=== PATIENT | female | born 1985 | race Caucasian/White ===

== ENCOUNTER 2019-12-13 11:13 | Outpatient (CLI) | payer OTHER, SELFPAY ==
--- NOTE | ~2019-12-13 | US_ITS ---
EXAMINATION: US OB <=14 wk fetus w TV EXAM DATE: 12/13/2019 12:09 INDICATION: Suppression of menstruation. 1st trimester. TECHNIQUE: Pelvic obstetrical transabdominal and transvaginal sonogram was performed by a technologkenyatta queen. There are multiple grayscale and Doppler images available for interpretation. FINDINGS: Uterus measures 10.4 x 4.8 x 5.8 cm. There is intrauterine gestation sac. The 1.[address] mean sac diameter corresponds to estimated gestational age by ultrasound of 5 weeks 5 days. There is no pole identified at this time. Identification of a yolk sac. Small subchorionic hematoma. The ovaries are morphologically normal. IMPRESSION: Intrauterine gestation sac with small subchorionic hemorrhage. No pole identified a t this time, cannot confirm or exclude viability. Consider 2 week follow-up pelvic sonogram. Reviewed, dictated and finalized at location A. IMPRESSION: Intrauterine gestation sac with small subchorionic hemorrhage. No f etal pole identified at this time, cannot confirm or exclude viability. Conside r 2 week follow-up pelvic sonogram.
== END 2019-12-13 11:14 | disposition home or self-care (01) ==
PROVIDERS: PCP Family Medicine; Visit Provider Obstetrics & Gynecology
DX: N92.5 Other specified irregular menstruation (principal); O36.8911 Maternal care for other specified fetal problems, first trimester, fetus 1
CPT/HCPCS: 76801; 76817

== ENCOUNTER → 2019-12-25 15:18 | Outpatient (CLI) | payer OTHER, SELFPAY ==
--- NOTE | ~2019-12-25 | US_ITS ---
EXAMINATION: US OB transvaginal EXAM DATE: 12/25/2019 16:10 INDICATION: Follow-up pole. Viability. 1st trimester. TECHNIQUE: Pelvic obstetrical transvaginal sonogram was performed by a technologist. There are mult iple grayscale and Doppler images available for interpretation. Comparison is made to prior examinati on from 12/13/2019. FINDINGS: Uterus measures 8.7 x 6.0 x 6.7 cm. There is intrauterine gestation sac. pole with heart rate confirmed at 92 beats per minute. The 3 mm crown-rump length corresponds to estimated ges tational age by ultrasound of 6 weeks 0 days. Yolk sac is identified. There is tiny subchorionic h emorrhage measuring 7 x 6 x 9 mm. Right ovary measures 2.9 x 1.4 x 2.0 cm. The left ovary measures 5. 3 x 3.9 x 4.2 cm and likely has the corpus luteal cyst. IMPRESSION: Early live intrauterine gestation with small subchorionic hemorrhage. Reviewed, dictated and finalized at location A. IMPRESSION: Early live intrauterine gestation with small subchorionic hemorrha ge.
== END ==
PROVIDERS: Visit Provider Obstetrics & Gynecology
DX: Z32.01 Encounter for pregnancy test, result positive (principal)
CPT/HCPCS: 76817

== ENCOUNTER → 2020-01-24 13:42 | Outpatient (CLI) | payer OTHER, SELFPAY ==
--- NOTE | ~2020-01-24 | US_ITS ---
EXAMINATION: US OB <=14 wk fetus w TV DATE: 01/24/2020 14:05 INDICATION: Vaginal bleeding and cramping during first trimester of TECHNIQUE: Real-time pelvic ultrasound utilizing both a transvaginal and transabdominal probe was pe rformed. The interpreting radiologist was not present for the study. COMPARISON: 12/25/2019 FINDINGS: The uterus measures 10.8 x 6.9 x 7.1 cm. There is an intrauterine gestational sac measuring 2.2 cm i n diameter which now appears empty with no discernible yolk sac or pole, both of which were nina dent on the prior study consistent with demise. The right ovary measures 2.5 x 1.3 x 1.9 cm. The left ovary is not visualized. There is small amount of free fluid in the pelvis. IMPRESSION: 1. Intrauterine gestational sac now with no discernible yolk sac or pole consistent with demise. Reviewed, dictated and finalized at location B.
== END ==
PROVIDERS: PCP Family Medicine; Visit Provider Obstetrics & Gynecology
DX: Z34.81 Encounter for supervision of other normal pregnancy, first trimester (principal)
CPT/HCPCS: 76801; 76817

== ENCOUNTER 2020-02-02 16:29 | Emergency (ER) | payer OTHER, SELFPAY ==
--- NOTE | ~2020-02-02 | US_ITS ---
EXAMINATION: US OB <= 14 weeks fetus DATE: 02/02/2020 19:36 INDICATION: Vaginal bleeding. Recent dilatation and curettage. TECHNIQUE: Real-time transabdominal pelvic ultrasound was performed. COMPARISON: Ultrasound 01/24/2020 FINDINGS: The uterus measures 10.1 x 4.1 x 5.5 cm. The endometrial complex measures 6 mm in thickness. The rig ht ovary measures 2.4 x 1.6 x 1.7 cm. The left ovary measures 3.1 x 1.4 x 2.1 cm. There is normal vas cular flow in the ovaries. There is no free fluid in the pelvis. IMPRESSION: 1. No retained products of conception. Reviewed, dictated and finalized at location A. 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
[2020-02-02 17:08] VITALS: BP 117/47; PULSE 81; RESP 18; TEMP 36.9; O2SAT 100
[2020-02-02 17:35] LABS: Basophils Percent Auto 0.4 % (0.2-1.2); Eosinophils Absolute Auto 0.2 K/mm3 (0-0.3); Hematocrit 39.9 % (37.0-47.0); Hemoglobin 13.2 g/dL (12.0-15.0); Immature Granulocyte Absolute 0.02 K/mm3 (0.00-0.031); Immature Granulocyte Percent A 0.3 % (0-0.5); Lymphocytes Absolute Auto 2.82 K/mm3 (0.9-3.2); Lymphocytes Percent Auto 40.6 % (18.3-44.2); Mean Corpuscular HGB Conc 33.1 g/dl (32-36); Mean Corpuscular Hemoglobin 30.7 pg (26-34); Mean Corpuscular Volume 92.8 fl (80-100); Mean Platelet Volume 10.2 fl (7.4-10.4); Monocytes Absolute Auto 0.6 K/mm3 (0.1-0.6); Monocytes Percent Auto 8.1 % (2.6-8.5); Neutrophils Absolute Auto 3.3 K/mm3 (1.3-6.7); Neutrophils Percent Auto 47.6 % (45.5-73.1); Platelet Count Result 284 k/mm3 (150-375); Red Cell Distribution Width 12.1 % (11.5-14.5)
[2020-02-02 18:06] LABS: Beta HCG Quantitative 233.64 mIU/ML
[2020-02-02 18:11] VITALS: BP 138/84; BP 144/82; PULSE 108
[2020-02-02 18:12] VITALS: BP 140/80; PULSE 105
[2020-02-02] MEDS: SODIUM CHLORIDE 0.9% IV 1,000 ML 999 ML IV CONT ×2 (18:44→19:42)
--- NOTE | 2020-02-02 18:50 | PC.NURSE ---
Per Cheryl in lab, a type and screen is not needed as the pt has had a rhogam screen done.
[2020-02-02 19:01] LABS: Anion Gap 8 mmol/L (8-16); Blood Urea Nitrogen 12 mg/dL (7-17); Calcium 9.5 mg/dL (8.4-10.2); Carbon Dioxide 26 mmol/L (22-30); Chloride 105 mmol/L (98-107); Estimated CRCL calculation 96 ml/min; Estimated Glomerular Filt Rate > 60; Glucose 96 mg/dL (65-105); Potassium 4.6 mmol/L (3.4-5.0); Sodium 139 mmol/L (137-145)
--- NOTE | 2020-02-02 19:05 | PC.NURSE ---
Report to Hyacinth Bowman RN, to continue care.
[2020-02-02] MEDS: ONDANSETRON INJ 4 MG/2 ML VIAL IV PUSH (19:09)
--- NOTE | 2020-02-02 19:28 | ED.GENADULT ---
HPI - General Adult General Chief complaint: Vaginal Bleeding Stated complaint: heavy vag bleeding, pain after d & c Time Seen by Provider: 02/02/20 18:37 Source: patient Mode of arrival: ambulatory Limitations: no limitations History of Present Illness HPI narrative: Patient is a 34-year-old female who presents after having had D&C [address] Harper patient notes over the last several days she has started having increasing bleeding and cramping. Patient presents with chills increasing bleeding nausea and cramping. Patient is G5, P2 and was at 14 weeks when she miscarried and had the D&C at an outside hospital Related Data Home Medications Medication Instructions Recorded Confirmed No Home Medications 02/02/20 02/02/20 Allergies Allergy/AdvReac Type Severity Reaction Status Date / Time No Known Allergies Allergy Verified 02/02/20 18:17 Review of Systems Review of Systems: All systems reviewed & are unremarkable except as noted in HPI and below PMFSH Past Medical History Medical History Generalized anxiety disorder Family History Family History (Updated 10/13/18 @ 14:33 by DOCTOR UNKNOWN) Mother Hypertension Family history of elevated blood lipids Grandparent Acute myocardial infarction Cerebrovascular accident Family history of malignant neoplasm Social History Social History Smoking status: Former smoker Smoking end date: 03/29/10 Alcohol intake: current Exam Narrative: Exam Narrative: GENERAL: Well-appearing, well-nourished, and in no acute distress. HEAD: Normocephalic, atraumatic. EYES: PERRLA and EOMI. ENT: Nares clear, no rhinorrhea or epistaxis. Mucous membranes moist. CHEST: Clear to auscultation. No respiratory distress. No wheezes rales or rhonchi HEART: Regular rate and rhythm. No murmur heard. Normal peripheral pulses. ABDOMEN: Soft, tenderness in the lower quadrants, nondistended EXTREMITIES: Normal range of motion. No edema. SKIN: Warm, dry, no rash. NEURO: No focal deficits. Alert and oriented x3. PSYCH: Normal mood and affect. Course Course Emergency Course: Patient was hydrated and given medication as well as antibiotic in the emergency department is aware of recommendations and discussion with her life claims examiner will follow with them on an outpatient basis has appointment on Wednesday has been given reasons to return Consultations Consultation #1: Discussed case with Dr. Gregorio who recommends the patient can be discharged home for further evaluation on an outpatient basis patient given reasons to return will be placed on antibiotics as recommended by gynecology recommends doxycycline Date: 02/02/20 Time: 21:04 Vital Signs Vital signs: Vital Signs Temperature 98.5 F 02/02/20 17:08 Pulse Rate 81 02/02/20 17:08 Respiratory Rate 18 02/02/20 17:08 Blood Pressure 117/47 L 02/02/20 17:08 Pulse Oximetry 100 02/02/20 17:08 Temperature 98.5 F 02/02/20 17:08 Pulse Rate 105 H 02/02/20 18:12 Respiratory Rate 18 02/02/20 17:08 Blood Pressure 140/80 02/02/20 18:12 Pulse Oximetry 100 02/02/20 17:08 Medical Decision Making MDM Narrative Medical decision making narrative: Patient with likely miscarriage no retained products seen on her ultrasound no high risk changes in the imaging blood work or vital signs stable ABCs felt appropriate for outpatient reevaluation medicated and evaluated the emergency department provided with reasons to return Vital Signs Vital Signs: Vital Signs Temperature 98.5 F 02/02/20 17:08 Pulse Rate 81 02/02/20 17:08 Respiratory Rate 18 02/02/20 17:08 Blood Pressure 117/47 L 02/02/20 17:08 Pulse Oximetry 100 02/02/20 17:08 Temperature 98.5 F 02/02/20 17:08 Pulse Rate 105 H 02/02/20 18:12 Respiratory Rate 18 02/02/20 17:08 Blood Pressure 140/80 02/02/20 18:12 Pu
[2020-02-02] MEDS: oxyCODONE/ACETAMINOPHEN (*CRX) 5-325 MG TABLET 1 TABLET PO (21:04)
[2020-02-02] MEDS: IBUPROFEN IV 800 MG/200 ML 800 MG/200 ML BAG 400 MG IVPB (21:05)
[2020-02-02] MEDS: DOXYCYCLINE HYCLATE 100 MG TABLET PO (21:06)
[2020-02-02 22:04] VITALS: BP 115/68; PULSE 72; RESP 17; O2SAT 99
== END 2020-02-02 22:00 | disposition home or self-care (01) ==
PROVIDERS: Emergency Provider Emergency Medicine; PCP Family Medicine
DX: R10.9 Unspecified abdominal pain (principal); Z98.890 Other specified postprocedural states
CPT/HCPCS: 36415; 76801; 80048; 84702; 85025; 85461; 96361; 96365; 96375; 99284; A9270; J0131; J1741; J2405; J7030

== ENCOUNTER 2020-06-02 18:18 | Emergency (ER) | payer OTHER, SELFPAY ==
[2020-06-02 18:23] VITALS: BP 156/85; PULSE 104; RESP 24; TEMP 36.7; O2SAT 100
[2020-06-02 19:14] LABS: Lactic Acid Reflex 1.4 mmol/L (0.7-2.1)
[2020-06-02 19:18] LABS: Alanine Aminotransferase 16 U/L (4-35); Albumin Level 4.4 g/dL (3.5-5.1); Alkaline Phosphatase 64 U/L (38-126); Anion Gap 7 mmol/L (8-16); Aspartate Amino Transferase 23 U/L (14-36); Bilirubin,Total 0.3 mg/dL (0.2-1.3); Blood Urea Nitrogen 15 mg/dL (7-17); CRP < 0.5 mg/dL (<1.0); Calcium 9.3 mg/dL (8.4-10.2); Carbon Dioxide 26 mmol/L (22-30); Chloride 107 mmol/L (98-107); Estimated CRCL calculation 92 ml/min; Estimated Glomerular Filt Rate > 60; Glucose 117 mg/dL (65-105); Potassium 4.1 mmol/L (3.4-5.0); Sodium 140 mmol/L (137-145)
[2020-06-02 19:19] LABS: Add Urine Microscopic? YES; Amorphous Sediment Urine Moderate; Appearance Urine Cloudy (Clear); Bilirubin Urine Negative (Negative); Blood Urine Negative (Negative); Color Urine Yellow (Yellow); Glucose Urine UA Negative (Negative); Ketones Urine Negative (Negative); Leukocyte Esterase Ur Trace LEU/UL (Negative); Nitrate Urine Negative (Negative); Protein Urine 1+ mg/dL (Negative); RBC Urine 0-2 /hpf (0-2); Specific Grav Ur 1.016 (1.001-1.035); Squamous Epithelial Cell Urine Moderate /hpf (Few); Urobilinogen Urine Negative mg/dL (<2.0); WBC Urine 0-3 /hpf
[2020-06-02] MEDS: SODIUM CHLORIDE 0.9% IV 1,000 ML 999 ML IV CONT (19:25)
[2020-06-02] MEDS: IBUPROFEN IV 800 MG/200 ML 800 MG/200 ML BAG 400 MG IVPB (19:26)
[2020-06-02] MEDS: LORazepam INJ (*CRX) 2 MG/ML VIAL 1 MG IV PUSH (19:27)
--- NOTE | 2020-06-02 19:27 | ED.GENADULT ---
HPI - General Adult General Chief complaint: Unspecified <Ridge Avalos PA-C - Last Filed: 06/02/20 21:04> Stated complaint: body aches, night sweats <Ridge Avalos PA-C - Last Filed: 06/02/20 21:04> Time Seen by Provider: 06/02/20 18:31 <VASILIY Kim Last Filed: 06/02/20 21:04> Source: patient and old records reviewed <VASILIY Kim Last Filed: 06/02/20 21:04> Mode of arrival: ambulatory <VASILIY Kim Last Filed: 06/02/20 21:04> Limitations: no limitations <VASILIY Kim Last Filed: 06/02/20 21:04> History of Present Illness HPI narrative: Patient is a 34-year-old female who presents to emergency department for evaluation of chills and body aches patient notes for the last 3 weeks since she had a tubal ligation she has been having mild discomfort in the lower pelvic region with various parts of her body having aching today she contacted primary care was instructed to come to the ER with aching to the upper shoulders and elbows patient denies any vaginal bleeding discharge urinary symptoms or URI symptoms or similar occurrence in the past <Ridge Avalos PA-C - Last Filed: 06/02/20 21:04> Related Data Allergies/adverse reactions: Allergies Allergy/AdvReac Type Severity Reaction Status Date / Time No Known Allergies Allergy Verified 06/04/20 11:29 <Ridge Avalos PA-C - Last Filed: 06/02/20 21:04> Review of Systems Review of Systems: All systems reviewed & are unremarkable except as noted in HPI and below <VASILIY Kim Last Filed: 06/02/20 21:04> [facility] Past Medical History Medical History: Medical History Androgenic alopecia Generalized anxiety disorder Miscarriage within last 12 months SAB3 Psoriasis Telogen effluvium <VASILIY Kim Last Filed: 06/02/20 21:04> Family History Family History: Family History Mother Hypertension Family history of elevated blood lipids Grandparent Acute myocardial infarction Cerebrovascular accident Family history of malignant neoplasm <Ridge Avalos PA-C - Last Filed: 06/02/20 21:04> Social History Social History: Social History Smoking status: Never smoker Smoking end date: 03/29/10 Alcohol intake: current Gender identity (if verbalized by the patient): Female <Ridge Avalos PA-C - Last Filed: 06/02/20 21:04> Exam Narrative: Exam Narrative: GENERAL: Well-appearing, obese, and in no acute distress. HEAD: Normocephalic, atraumatic. EYES: PERRLA and EOMI. ENT: Nares clear, no rhinorrhea or epistaxis. Mucous membranes moist. NECK: Supple. No adenopathy or masses. CHEST: Clear to auscultation. No respiratory distress. No wheezes rales or rhonchi HEART: Regular rate and rhythm. No murmur heard. Normal peripheral pulses. ABDOMEN: Soft, nontender, nondistended EXTREMITIES: Normal range of motion. No edema. SKIN: Warm, dry, no rash. NEURO: No focal deficits. Alert and oriented x3. Cranial nerves II through XII grossly intact PSYCH: Normal mood and affect. <VASILIY Kim Last Filed: 06/02/20 21:04> Course Course Emergency Course: Patient in the room no distress no high risk changes in the evaluation has close follow-up with primary care and healthcare social worker which is felt appropriate for further evaluation and to her symptomology which is been present for 3 weeks following her tubal ligation miscarriage it is unclear is whether or not her symptomology is related to this patient feels comfortable with the further evaluation on outpatient basis and will return if symptoms worsen ABCs and vital signs intact and stable <VASILIY Kim Last Filed: 06/02/20 21:04> Vital Signs Vital signs: Vital Signs [place]
[2020-06-02 19:33] LABS: Erythrocyte Sedimentation Rate 15 mm/hr (0-20)
[2020-06-02] MEDS: HYDROcodone/acetaminophen (*CRX) 5-325 MG TABLET 1 TAB PO (20:03)
--- NOTE | 2020-06-02 20:05 | PC.NURSE ---
pt c/o burning from caldelor iv, stopped infusion. provider aware
[2020-06-02 20:21] LABS: Basophils Percent Auto 0.3 % (0.2-1.2); Eosinophils Absolute Auto 0.2 K/mm3 (0-0.3); Eosinophils Percent Auto 2.4 % (0-4.4); Hematocrit 42.2 % (37.0-47.0); Hemoglobin 14.2 g/dL (12.0-15.0); Immature Granulocyte Absolute 0.01 K/mm3 (0.00-0.031); Immature Granulocyte Percent A 0.1 % (0-0.5); Lymphocytes Percent Auto 39.3 % (18.3-44.2); Mean Corpuscular HGB Conc 33.6 g/dl (32-36); Mean Corpuscular Hemoglobin 30.3 pg (26-34); Mean Platelet Volume 11.1 fl (7.4-10.4); Monocytes Absolute Auto 0.6 K/mm3 (0.1-0.6); Monocytes Percent Auto 7.7 % (2.6-8.5); Neutrophils Percent Auto 50.2 % (45.5-73.1); Platelet Count Result 225 k/mm3 (150-375); Red Blood Count 4.69 M/mm3 (4.2-5.4); Red Cell Distribution Width 11.7 % (11.5-14.5); White Blood Count 7.9 K/mm3 (4.5-10.0)
[2020-06-02 20:33] LABS: Lipase 124 U/L (23-300)
[2020-06-02 21:22] VITALS: BP 126/78; PULSE 79; RESP 17; O2SAT 98
== END 2020-06-02 21:23 | disposition home or self-care (01) ==
PROVIDERS: Emergency Medicine Emergency Medical Services; Emergency Provider Emergency Medicine; PCP Family Medicine
DX: M25.512 Pain in left shoulder (principal); M25.511 Pain in right shoulder; M25.522 Pain in left elbow; M25.521 Pain in right elbow; Z87.891 Personal history of nicotine dependence
CPT/HCPCS: 36415; 80053; 81001; 81025; 83605; 83690; 84443; 85025; 85652; 86140; 96374; 96375; 99284; A9270; J1741; J2060; J7030

== ENCOUNTER 2021-05-19 14:24 | Outpatient (CLI) | payer OTHER, SELFPAY | END 2021-05-19 14:25 | disposition home or self-care (01) | LOC: ANHSURGERY 14:26 | PROVIDERS: PCP Family Medicine; Visit Provider Urology | DX: Z01.818 Encounter for other preprocedural examination (principal); R32 Unspecified urinary incontinence; N81.9 Female genital prolapse, unspecified | CPT/HCPCS: 36415; 86850; 86900; 86901; 87086 ==

== ENCOUNTER 2021-05-26 00:41 | Day surgery (SDC) | payer OTHER, SELFPAY ==
[2021-05-16 14:34] VITALS: BMI 33.9
--- NOTE | 2021-05-16 14:50 | PC.NURSE ---
Report to the Outpatient Waiting Room, entrance under the green pavilion located off [facility], at time 10:00 on date 05/26/21. OR Time: 12:00. - You and your visitor will be asked a series of questions to screen for COVID 19 for your protection. - A mask is required within the hospital. One visitor will be allowed to accompany the patient into the hospital. Patients visitor will be instructed to remain with patient at all times or leave the building. We will allow the visitor to come back to the postoperative area when patient is ready. Preoperative COVID Testing Requirements: No COVID Test needed if: (proof is required; if not received patient will have Rapid Test prior to entry) - Patient has received COVID Vaccine at least 14 days prior to procedure date or - Patient has positive COVID test result within last 90 days of surgery date. COVID Test needed if above criteria is not met Patients may have clear liquids (water, carbonated beverages, clear teas, apple juice) until 3 hours prior to surgery (9:00) with a maximum of 20 ounces. - No food from midnight until time of surgery Take the following medications with a SIP of water the morning of surgery: NONE Medications to discontinue per physician: N/A Date to take last dose: N/A Please no make-up, nail ku[place]i, hairspray, perfume, deodorant, or body powder the day of surgery. No jewelry (including any body piercings) or valuables the day of surgery, leave them at home. Please take a shower or bath the night before, or the morning of, surgery with an antibacterial soap. Wear comfortable, loose fitting clothing. - Jewelry must be removed prior to entering the operating room. Rings and piercings that are not removed may be cut off. - The hospital will not accept responsibility for valuables. - Please leave all valuables, including medications, at home the day of surgery. If you are going home after surgery, a licensed waste collection driver must drive you home. - NO public transportation without another adult. - We recommend that an adult stay with you for 24 hours following discharge. - We also recommend that you do not drive, make important decision, drink alcoholic beverages, or take any drugs that were not prescribed by your health care provider for at least 24 hours after your discharge time. Follow any additional instructions given to you from your surgeon. Telephone instructions given to SABRINA BERNAL and asked if any additional questions and then verbalized understanding. Patient advised to call surgeon office or pre surgery nurse liaison [phone] if any additional questions.
--- NOTE | 2021-05-18 19:39 | PM.IMHP ---
H&P: HPI History of Present Illness Date/Time: 05/18/21 19:39 35 yo with DESTINEE Chief Complaint: DESTINEE Review of Systems Review of Systems: All systems reviewed & are unremarkable except as noted in HPI and below PMFSH Past Medical History Medical History Androgenic alopecia Generalized anxiety disorder Miscarriage within last 12 months SAB3 Psoriasis Telogen effluvium Family History Family History Mother Hypertension Family history of elevated blood lipids Grandparent Acute myocardial infarction Cerebrovascular accident Family history of malignant neoplasm Social History Social History Smoking packs per day: 0.5 Smoking cigarettes per day: 10.0 Years smoked: 7 Smoking pack-years: 3.50 Smoking status: Former smoker Tobacco type: cigarettes Smoking end date: 04/29/13 Alcohol intake: current Drinks per week: 2 Substance use: never Substance use type: does not use Gender identity (if verbalized by the patient): Female Spiritual care concerns: No Meds Home Medications and Allergies Home Medications Medication Instructions Recorded Confirmed Type No Home Medications 05/16/21 05/16/21 History Allergies Allergy/AdvReac Type Severity Reaction Status Date / Time No Known Allergies Allergy Verified 05/16/21 14:34 Exam Narrative: NAD A+Ox3 + urethral mobility Assessment and Plan Assessment and plan (1) DESTINEE (stress urinary incontinence, female): Code(s): N39.3 - Stress incontinence (female) (male) Status: Acute Assessment and Plan: urethral sling
[2021-05-26] VITALS (10 sets, daily range): BP systolic 105–130; BP diastolic 53–67; PULSE 73–110; RESP 12–18; TEMP 36.1–37.2; O2SAT 97–100
--- NOTE | 2021-05-26 07:09 | WPDHPUPDATE1 ---
History and Physical Update Update Date/Time: 05/26/21 07:09 History and Physical has been reviewed, including an updated exam of the patient. There are NO changes in the patient's condition. Risks, benefits, and alternatives have been discussed and questions answered. Patient agrees to proceed with procedure.
--- NOTE | 2021-05-26 08:08 | WPDANESEPPF ---
Anes - Initial Pre Proc Eval Procedure: Operation Date: 05/26/21 12:00 Proposed Procedures p Urethral Sling - Braxton Stevens MD s Robotic Assisted Total Laparoscopic Hysterectomy - Rafael Harper MD Date/Time: 05/26/21 08:08 Surgeon: Braxton Stevens MD Pre Op Diagnosis: stress incontinence Patient Data Age: 35 Gender: F Height: 1.65 m Weight: 92.53 kg Allergies Allergy/AdvReac Type Severity Reaction Status Date / Time No Known Allergies Allergy Verified 05/16/21 14:34 Home Medications Medication Instructions Recorded Confirmed Type No Home Medications 05/16/21 05/16/21 History Patient hx anesthesia problems: none Family hx anesthesia problems: none Results Review: All pre-operative results and documents have been reviewed as part of the pre-operative evaluation. [facility] Past Medical History Medical History (Updated 05/26/21 @ 08:09 by Tima Dove DO) Androgenic alopecia Anxiety Depression Generalized anxiety disorder Miscarriage within last 12 months SAB3 Psoriasis Telogen effluvium Surgical History Surgical History (Updated 05/26/21 @ 08:09 by Tima Dove DO) History of tubal ligation Family History Family History Mother Hypertension Family history of elevated blood lipids Grandparent Acute myocardial infarction Cerebrovascular accident Family history of malignant neoplasm Social History Social History Smoking packs per day: 0.5 Smoking cigarettes per day: 10.0 Years smoked: 7 Smoking pack-years: 3.50 Smoking status: Former smoker Tobacco type: cigarettes Smoking end date: 04/29/13 Alcohol intake: current Drinks per week: 2 Substance use: never Substance use type: does not use Living arrangements: with family Gender identity (if verbalized by the patient): Female Spiritual care concerns: No Anes - Eval Final PreProcedure Day of Procedure 05/26/21 08:08 Patient weight: obese Heart: regular rate and rhythm Lungs: clear to auscultation and normal air movement Airway: Mallampati scale class II Neurological: alert and oriented Last oral intake: >/= 8 hours ASA classification: II Emergent: no Anesthetic plan: proceed Anesthesia type and monitoring: general ETT and standard monitoring Results Review: All pre-operative results and documents have been reviewed as part of the pre-operative evaluation. Informed Consent: The patient's anesthetic plan and its attendant risks and benefits were discussed with the patient/family/POA. Questions were solicited and answers provided to the satisfaction of the patient/family/POA.
[2021-05-26] MEDS: LACTATED RINGERS 1,000 ML 30 ML IV CONT ×2 (10:20→14:19)
[2021-05-26] MEDS: ACETAMINOPHEN 500 MG TABLET 1000 MG PO (10:29)
[2021-05-26] MEDS: KETOROLAC 15 MG/ML VIAL (*BKC) IV PUSH (10:29)
--- NOTE | 2021-05-26 10:53 | PM.IMHP ---
H&P: HPI History of Present Illness Date/Time: 05/26/21 10:53 35-year-old 5 para 2031 female presents for treatment of uterine prolapse and stress urinary incontinence. underwent tubal ligation approximately 1 year ago and over the past number of months has had increasing cramping discomfort and vaginal bleeding. Also pelvic pressure fullness especially with activity and exercise. Also relates stress urinary incontinence with activities as well. Is seen Dr. Stevens who will be proceeding with sling procedure for her incontinence. She has had nonsurgical measures discussed with her which she declines. Chief Complaint: Uterine prolapse Review of Systems Review of Systems: All systems reviewed & are unremarkable except as noted in HPI and below PMFSH Past Medical History Medical History Androgenic alopecia Anxiety Depression Generalized anxiety disorder Miscarriage within last 12 months SAB3 Psoriasis Telogen effluvium Surgical History Surgical History History of tubal ligation Family History Family History Mother Hypertension Family history of elevated blood lipids Grandparent Acute myocardial infarction Cerebrovascular accident Family history of malignant neoplasm Social History Social History Smoking packs per day: 0.5 Smoking cigarettes per day: 10.0 Years smoked: 7 Smoking pack-years: 3.50 Smoking status: Former smoker Tobacco type: cigarettes Smoking end date: 04/29/13 Alcohol intake: current Drinks per week: 2 Substance use: never Substance use type: does not use Living arrangements: with family Gender identity (if verbalized by the patient): Female Spiritual care concerns: No Meds Home Medications and Allergies Home Medications Medication Instructions Recorded Confirmed Type No Home Medications 05/16/21 05/26/21 History Allergies Allergy/AdvReac Type Severity Reaction Status Date / Time No Known Allergies Allergy Verified 05/26/21 10:51 Vital Signs Vital Signs - 24 hr 05/26/21 09:53 Temperature 98.6 F Pulse Rate 89 Respiratory Rate 16 Blood Pressure 115/67 Pulse Oximetry 98 Exam Const: General: cooperative, healthy appearing and comfortable Resp: Effort & Inspection: normal respiratory effort Auscultation: clear to auscultation bilaterally Cardio: Rate: regular rate Rhythm: regular rhythm GI: Inspection: normal to inspection Auscultation: normal bowel sounds : External Female Exam: normal external appearance Speculum Exam - Vagina: normal appearance of the vagina Speculum Exam - Cervix: normal appearance of the cervix Bimanual exam- vagina & uterus: uterine size normal and Uterus displaced ( Prolapse noted) Bimanual Exam- Adnexa, other: normal adnexae and cystocele Assessment and Plan Assessment and plan (1) Uterine prolapse: Code(s): N81.4 - Uterovaginal prolapse, unspecified Status: Acute (2) DESTINEE (stress urinary incontinence, female): Code(s): N39.3 - Stress incontinence (female) (male) Status: Acute Additional Plan will proceed with robotic assisted hysterectomy with ovarian preservation.
--- NOTE | 2021-05-26 10:58 | WPDHPUPDATE1 ---
History and Physical Update Update Date/Time: 05/26/21 10:58 History and Physical has been reviewed, including an updated exam of the patient. There are NO changes in the patient's condition. Risks, benefits, and alternatives have been discussed and questions answered. Patient agrees to proceed with procedure.
[2021-05-26] MEDS: ceFAZolin 2 GM/D5W 50 ML 2 GM/50 ML BAG IVPB (12:06)
--- NOTE | 2021-05-26 13:31 | SUR.OPER ---
EBL FOR DR DODGE 50ML
[2021-05-26] MEDS: BUPIVACAINE/EPINEPHRINE 0.25% 10 ML VIAL INFILTRATE (13:49)
--- NOTE | 2021-05-26 13:51 | PM.OP ---
Procedure Note - Brief Procedure Note - Brief Date of procedure: 05/26/21 Pre-op diagnosis: stress incontinence Uterine prolapse Post-op diagnosis: same Procedure performed: Robotic assisted laparoscopic hysterectomy with ovarian preservation Description of procedure: Patient was prepped and draped in usual manner for this procedure. Cervical instruments were placed for uterine ability throughout the case. Abdominal trocar sites were placed under direct visualization. The Adelaida system was attached to these trocars and instruments placed through the trocars again under direct visualization. Surgeon then moved to the console and the round ligaments bilaterally were cauterized and cut bladder flap was developed in posterior leaf the broad ligament was also incised with the uterine vessels skeletonized. Uterine vessels were cauterized and cut. Posterior cul-de-sac was entered this was carried circumferentially to separate the cervix from the vagina. Uterus was delivered into the vagina and the cuff was closed using V lock suture from the right angle to midline in from the left angle to the midline as well. Irrigation was undertaken there was no significant bleeding. Freya was placed empirically over the vaginal cuff. Gas was allowed to escape incisions approximated using 4-[address] Stevens entered the room to proceed with his portion of the procedure. Anesthesia: GLMA Surgeon: Rafael Harper MD Estimated blood loss (mL): 50 Drains: No Packing: No Pathology: yes Complications: No immediate complications Condition: stable Disposition: PACU Findings: Slightly enlarged uterus. Uterus does prolapse to the introitus.
--- NOTE | 2021-05-26 13:55 | SUR.OPER ---
MESH JIMMY SAINZ LOT [id number], EXP 2023-09-05 SLING
--- NOTE | 2021-05-26 14:10 | W.PM.PROC2 ---
Procedure Note - Detailed Date of Procedure 05/26/21 Pre-op Diagnosis stress incontinence Post-op Diagnosis same Procedure Performed mid urethral sling cystoscopy Surgeon Braxton Stevens MD Indications This is a female with confirm stress urinary incontinence. She desires surgical correction. She understands the risks of bleeding, infection, injury to the urinary tract, vaginal mesh extrusion, urinary tract mesh erosion, obstructive voiding requiring a secondary procedure, hip and leg pain, dyspareunia, inability to improve overactive bladder symptoms. She agrees to proceed. I am doing the surgery in conjunction with her hysterectomy Description of Procedure I am to the operating room at the conclusion of her hysterectomy. She was already given appropriate perioperative antibiotics. A time-out performed. I marked out the site of the inner thigh incisions. I anesthetized the skin and made those incisions. I anesthetized the anterior vaginal wall over the mid urethra. I made a 1 cm incision. I dissected out laterally taking great care not to injure the refilled vaginal wall. Of note she had thinner tissues I would expect for her young age. I passed the helical trocars. First on the left. Then on the right. I did this from the thigh incision towards the vaginal incision. The sling was connected to the trocars and brought out through the thigh incision. I tensioned the sling appropriately. I cut and the plastic sheaths. I then closed the incision with 2 0 Vicryl. An additional [id number] was used for hemostasis. I palpated the vaginal wall bilaterally and there was no evidence of any exposed sling. On cystoscopy there is no tumors or surgical artifact. There was no surgical artifact in the urethra. Both ureteral orifices were seen to excrete clear yellow urine. I cut the excess sling material. Close incisions with glue. She was awakened and transferred to the PACU in stable condition. The Aguila catheter is left indwelling Implants Urethral sling Drains No Packing No Pathology none sent Complications No immediate complications Condition stable Disposition PACU
[2021-05-26] MEDS: fentaNYL CITRATE INJ (*CRX) 100 MCG/2 ML VIAL 25 MCG IV PUSH ×2 (14:42→14:45)
--- NOTE | 2021-05-26 15:43 | PC.NURSE ---
This patient, Tricia Short, was received from PACU per bed to room 283. Patient/family oriented to unit policies and routines
[2021-05-26] MEDS: DEXTROSE 5%/LACTATED RINGERS 1,000 ML 125 ML IV CONT (16:23)
[2021-05-26] MEDS: KETOROLAC 30 MG/ML VIAL (*BKC) IV PUSH (18:57)
[2021-05-26] MEDS: ONDANSETRON INJ 4 MG/2 ML VIAL IV PUSH (21:11)
[2021-05-27 04:40] VITALS: BP 106/58; PULSE 83; RESP 16; TEMP 36.9
[2021-05-27] MEDS: IBUPROFEN 600 MG TABLET PO (04:57)
[2021-05-27 05:28] LABS: Basophils Percent Auto 0.3 % (0.2-1.2); Eosinophils Percent Auto 0.1 % (0-4.4); Hematocrit 35.1 % (37.0-47.0); Hemoglobin 11.8 g/dL (12.0-15.0); Immature Granulocyte Absolute 0.05 K/mm3 (0.00-0.031); Immature Granulocyte Percent A 0.5 % (0-0.5); Lymphocytes Absolute Auto 2.01 K/mm3 (0.9-3.2); Lymphocytes Percent Auto 18.2 % (18.3-44.2); Mean Corpuscular HGB Conc 33.6 g/dl (32-36); Mean Corpuscular Hemoglobin 31.1 pg (26-34); Mean Corpuscular Volume 92.6 fl (80-100); Mean Platelet Volume 10.5 fl (7.4-10.4); Monocytes Absolute Auto 0.8 K/mm3 (0.1-0.6); Monocytes Percent Auto 7.2 % (2.6-8.5); Neutrophils Absolute Auto 8.1 K/mm3 (1.3-6.7); Neutrophils Percent Auto 73.7 % (45.5-73.1); Platelet Count Result 194 k/mm3 (150-375); Red Blood Count 3.79 M/mm3 (4.2-5.4); Red Cell Distribution Width 11.9 % (11.5-14.5)
--- NOTE | 2021-05-27 07:13 | PM.DS ---
DS: Admitting Diagnosis Discharge Date 05/27/2021 Admitting Diagnosis uterine prolapse DS: Summary Hospital Course Hospital Course: Postop without issues s/p RATLH/TOT. Has not urinated yet, will prior to d/c. No issues or concerns, tolereating regular diet/ambulation. Time Spent with Patient Time attestation: Total time spent providing and/or coordinating discharge services: DS: Data Data Completed and Pending Pending studies at discharge: Pending at discharge 05/26/21 13:17 Surgical [PTH] Routine Labs on day of discharge: Labs from last 24 hours 05/27/21 04:56 WBC 11.0 H RBC 3.79 L Hgb 11.8 L Hct 35.1 L MCV 92.6 MCH 31.1 MCHC 33.6 RDW 11.9 Plt Count 194 MPV 10.5 H Immature Gran % (Auto) 0.5 Neut % (Auto) 73.7 H Lymph % (Auto) 18.2 L [place] % (Auto) 7.2 Eos % (Auto) 0.1 Baso % (Auto) 0.3 Lymph # (Auto) 2.01 [place] # (Auto) 0.8 H Eos # (Auto) 0.0 Baso # (Auto) 0.0 Abs Immat Gran (auto) 0.05 H Absolute Neuts (auto) 8.1 H Absolute Nucleated RBC 0.0 Nucleated RBC % 0.0 Discharge Plan Discharge Patient Disposition: Home, Self-Care Stand Alone Forms: General Discharge Instructions Follow-up/Referrals: Rafael Harper MD [Physician] - 2 Weeks Discharge Medications: No Action No Home Medications RF: 0
[2021-05-27 08:05] VITALS: BP 112/64; PULSE 73; RESP 16; TEMP 36.4; O2SAT 99
--- NOTE | 2021-05-27 09:26 | P.PNAN_ITS ---
Anes - Prog Note Post-Op Date/Time: 05/27/21 09:26 Cardiovascular status: normal Respiratory status: normal Airway patency: baseline Mental status: baseline Post-Op hydration status: normal Vital Signs: Last Vital Signs Temp 97.5 F L 05/27/21 08:05 Pulse 73 05/27/21 08:05 Resp 16 05/27/21 08:05 BP 112/64 05/27/21 08:05 Pulse Ox 99 05/27/21 08:05 Pain Score (VAS): 04/07 I/O: Intake & Output 05/26/21 05/27/21 05/27/21 23:59 07:59 15:59 Intake Total 1490 Output Total 1400 800 Balance -1400 690 Laboratory Tests 05/27/21 04:56 05/27/21 04:56 WBC 11.0 H RBC 3.79 L Hgb 11.8 L Hct 35.1 L MCV 92.6 MCH 31.1 MCHC 33.6 RDW 11.9 Plt Count 194 MPV 10.5 H Immature Gran % (Auto) 0.5 Neut % (Auto) 73.7 H Lymph % (Auto) 18.2 L [place] % (Auto) 7.2 Eos % (Auto) 0.1 Baso % (Auto) 0.3 Lymph # (Auto) 2.01 [place] # (Auto) 0.8 H Eos # (Auto) 0.0 Baso # (Auto) 0.0 Abs Immat Gran (auto) 0.05 H Absolute Neuts (auto) 8.1 H Absolute Nucleated RBC 0.0 Nucleated RBC % 0.0 Post-procedural complaints: none Patient Feedback: Patient satisfied with anesthetic care.
[2021-05-27] MEDS: ACETAMINOPHEN 325 MG TABLET 650 MG PO (10:09)
== END 2021-05-27 10:33 | disposition home or self-care (01) ==
LOC: ANHSURGERY 09:39 → ANHOB2 16:32
PROVIDERS: Obstetrics & Gynecology; PCP Family Medicine; Visit Provider Urology
PROC: (CPT 57288; principal; 2021-05-26 12:00)
PROC: (CPT 58570; 2021-05-26 12:00)
DX: N39.3 Stress incontinence (female) (male) (principal); N73.6 Female pelvic peritoneal adhesions (postinfective); N81.4 Uterovaginal prolapse, unspecified; N80.0 Endometriosis of uterus; F41.8 Other specified anxiety disorders; F41.1 Generalized anxiety disorder; L64.9 Androgenic alopecia, unspecified; L40.9 Psoriasis, unspecified; L65.0 Telogen effluvium; Z87.891 Personal history of nicotine dependence; E66.9 Obesity, unspecified; Z68.35 Body mass index [BMI] 35.0-35.9, adult
CPT/HCPCS: 57288; 58570; S2900; 36415; 85025; 86850; 86900; 86901; 87086; 88307; 99199; A9270; C1771; J0690; J1100; J1170; J1885; J2250; J2405; J2704; J2710; J3010; J7030; J7120; J7121

== ENCOUNTER 2021-08-26 10:59 | Outpatient (CLI) | payer OTHER, SELFPAY ==
--- NOTE | ~2021-08-26 | US_ITS ---
US breast LT complete DATE: 08/26/2021 11:26 INDICATION: Left breast pain since June 2021. No palpable lump. There is an area of redness at 12:00 in June which has resolved. TECHNIQUE: Real time imaging of complete left breast. COMPARISON: None FINDINGS: No suspicious mass or shadowing or other significant sonographic shadowing is detected. IMPRESSION: BIRADS Category 1: Negative Reviewed, dictated and finalized at Location A. Reviewed, dictated and finalized at location A. IMPRESSION: BIRADS Category 1: Negative
== END 2021-08-26 11:00 | disposition home or self-care (01) ==
LOC: ANHIMG 11:00
PROVIDERS: PCP Family Medicine; Visit Provider Physician Assistant
DX: N64.4 Mastodynia (principal)
CPT/HCPCS: 76641

== ENCOUNTER 2021-12-09 13:54 | Emergency (ER) | payer OTHER, SELFPAY ==
--- NOTE | ~2021-12-09 | XR_ITS ---
EXAMINATION: XR chest 2V Exam Date/Time: 12/09/2021 14:10 CDT HISTORY: chest pain HEAVINESS SOB NAUSEA Comparison: None available. RESULT: Lines, tubes, and devices: None. Lungs and pleura: Clear. Cardiomediastinal silhouette: Normal. Other: No acute osseous or upper abdominal finding. IMPRESSION: No acute cardiopulmonary process. Reviewed, dictated and finalized at location K.
[2021-12-09 13:56] VITALS: BP 132/88; PULSE 90; RESP 16; TEMP 37; O2SAT 100
--- NOTE | 2021-12-09 13:59 | ECG_ITS ---
Measurements Intervals [place] Rate: 90 P: 44 CT: 127 QRS: 64 QRSD: 86 T: 50 QT: 349 QTc: 429 Interpretive Statements SINUS RHYTHM NORMAL ECG NO PREVIOUS ECG AVAILABLE FOR COMPARISON Electronically Signed On 12-09-2021 14:07:31 CDT by Leonardo Chavarria D.O.
[2021-12-09 14:16] LABS: Basophils Percent Auto 0.6 % (0.2-1.2); Eosinophils Absolute Auto 0.1 K/mm3 (0-0.3); Eosinophils Percent Auto 1.2 % (0-4.4); Hematocrit 41.4 % (37.0-47.0); Hemoglobin 13.8 g/dL (12.0-15.0); Immature Granulocyte Absolute 0.01 K/mm3 (0.00-0.031); Immature Granulocyte Percent A 0.1 % (0-0.5); Lymphocytes Absolute Auto 2.57 K/mm3 (0.9-3.2); Lymphocytes Percent Auto 37.8 % (18.3-44.2); Mean Corpuscular HGB Conc 33.3 g/dl (32-36); Mean Corpuscular Hemoglobin 30.1 pg (26-34); Mean Corpuscular Volume 90.2 fl (80-100); Mean Platelet Volume 10.2 fl (7.4-10.4); Monocytes Absolute Auto 0.6 K/mm3 (0.1-0.6); Monocytes Percent Auto 8.1 % (2.6-8.5); Neutrophils Absolute Auto 3.6 K/mm3 (1.3-6.7); Neutrophils Percent Auto 52.2 % (45.5-73.1); Platelet Count Result 264 k/mm3 (150-375); Red Blood Count 4.59 M/mm3 (4.2-5.4); White Blood Count 6.8 K/mm3 (4.5-10.0)
[2021-12-09 14:25] LABS: Alanine Aminotransferase 22 U/L (6-35); Albumin Level 4.6 g/dL (3.5-5.1); Alkaline Phosphatase 60 U/L (38-126); Anion Gap 11 mmol/L (8-16); Aspartate Amino Transferase 22 U/L (14-36); Bilirubin,Total 0.4 mg/dL (0.2-1.3); Blood Urea Nitrogen 11 mg/dL (7-17); Calcium 9.3 mg/dL (8.4-10.2); Carbon Dioxide 22 mmol/L (22-30); Chloride 105 mmol/L (98-107); Estimated CRCL calculation 93 ml/min; Estimated Glomerular Filt Rate > 60; Glucose 93 mg/dL (65-110); Lipase 97 U/L (23-300); Sodium 138 mmol/L (137-145)
[2021-12-09 14:26] LABS: Prothrombin Time 12.9 Seconds (11.1-14.7)
[2021-12-09 14:27] LABS: Partial Thromboplastin Time 24.1 SECONDS (22.3-36.8)
[2021-12-09 14:37] LABS: Troponin I < 0.012 ng/mL (0.000-0.034)
--- NOTE | 2021-12-09 15:59 | ED.CHESTPAIN ---
HPI - Chest Pain General Chief Complaint: Chest Pain Stated Complaint: CP Time Seen by Provider: 12/09/21 15:42 History of Present Illness HPI narrative: 36-year-old female presents to the emergency room for evaluation of chest pain for 3 days. Patient states that she experiences squeezing sensation at night. Denies any other associated symptoms such as shortness of breath difficulty breathing or radiating pain. Patient states a squeezing sensation lasts about 30 to 45 minutes and is not alleviated or aggravated by anything. Related Data Allergies Allergy/AdvReac Type Severity Reaction Status Date / Time No Known Allergies Allergy Verified 08/08/21 16:09 Review of Systems Review of Systems: CONSTITUTIONAL: Denies fever, chills, or sweats. EYES: Denies visual changes, redness, or discharge. ENT: Denies rhinorrhea, congestion, sore throat, or otalgia. CARDIOVASCULAR: Reports chest pain, denies palpitations or lower extremity edema RESPIRATORY: Denies cough or dyspnea. GASTROINTESTINAL: Denies abdominal pain, nausea, vomiting, or diarrhea. GENITOURINARY: Denies dysuria or hematuria. SKIN: Denies rash or itching. MUSCULOSKELETAL: Denies back pain, joint pain, or myalgia. NEUROLOGIC: Denies headache, numbness, dizziness, or weakness. PSYCHIATRIC: Denies anxiety or depression. [facility] Past Medical History Medical History Androgenic alopecia Anxiety Depression Generalized anxiety disorder Miscarriage within last 12 months SAB3 Psoriasis Telogen effluvium Surgical History Surgical History History of gynecological procedure (05/26/21) RATLH History of tubal ligation Family History Family History Mother Hypertension Family history of elevated blood lipids Grandparent Acute myocardial infarction Cerebrovascular accident Family history of malignant neoplasm Social History Social History Smoking packs per day: 0.5 Smoking cigarettes per day: 10.0 Years smoked: 7 Smoking pack-years: 3.50 Alcohol intake: current Drinks per week: 2 Substance use: never Substance use type: does not use Additional living arrangements comments: 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 HEAD: Normocephalic, atraumatic. EYES: Conjunctivae normal, PERRLA and EOMI. CHEST: Clear to auscultation. No respiratory distress. No wheezes rales or rhonchi. HEART: Regular rate and rhythm. No murmur heard. Normal peripheral pulses. EXTREMITIES: Normal range of motion. No edema. No clubbing or cyanosis SKIN: Warm, dry, no rash. No noted wounds NEURO: No focal deficits. Alert and oriented x3. MAEW. CN's II-XI intact bilaterally, normal gait PSYCH: Cooperative. Normal mood and affect. Course Vital Signs Vital signs: Vital Signs Temperature 37.0 C 12/09/21 13:56 Pulse Rate 90 12/09/21 13:56 Respiratory Rate 16 12/09/21 13:56 Blood Pressure 132/88 12/09/21 13:56 Pulse Oximetry 100 12/09/21 13:56 Oxygen Delivery Room Air 12/09/21 13:56 Temperature 37.0 C 12/09/21 13:56 Pulse Rate 90 12/09/21 13:56 Respiratory Rate 16 12/09/21 13:56 Blood Pressure 132/88 12/09/21 13:56 Pulse Oximetry 99 12/09/21 16:15 Oxygen Delivery Room Air 12/09/21 16:15 MDM - Chest Pain MDM Narrative Medical decision making narrative: 36-year-old female presented the emergency room for evaluation of squeezing chest pain that occurs at night when she is lying down. No evidence of fluid
[2021-12-09 16:15] VITALS: O2SAT 99
[2021-12-09 16:25] LABS: D Dimer 0.35 ug/mL (<0.48)
[2021-12-09 16:44] LABS: Thyroid Stimulating Hormone 0.417 uIU/mL (0.465-4.680)
[2021-12-09 17:26] LABS: Troponin I < 0.012 ng/mL (0.000-0.034)
[2021-12-09 17:28] VITALS: BP 117/82; PULSE 77; RESP 16; O2SAT 100
== END 2021-12-09 17:31 | disposition home or self-care (01) ==
PROVIDERS: Emergency Medicine; Emergency Provider Nurse Practitioner Family; PCP Family Medicine
DX: R07.9 Chest pain, unspecified (principal); F41.1 Generalized anxiety disorder; L40.9 Psoriasis, unspecified; L65.0 Telogen effluvium; F32.A Depression, unspecified; F17.210 Nicotine dependence, cigarettes, uncomplicated
CPT/HCPCS: 36415; 71046; 80053; 83690; 84443; 84484; 85025; 85380; 85610; 85730; 93005; 99284

== ENCOUNTER → 2022-01-21 07:59 | Outpatient (CLI) | payer OTHER, SELFPAY ==
--- NOTE | ~2022-01-21 | US_ITS ---
EXAMINATION: US pelvic complete w TV DATE: 01/21/2022 08:26 INDICATION: Pelvic and perineal pain Comparison:Ultrasound dated 02/02/2020 TECHNIQUE: Multiple transabdominal and endovaginal sonographic images of the pelvis performed. FINDINGS: The uterus is surgically absent. The right ovary measures 2.7 x 2 x 2 cm and the left ovary measures 2.4 x 1.8 x 1.6 cm. There are sm all follicles in each ovary. Normal doppler signal in both ovaries. There is no free fluid in the pelvis. There are no abnormal masses seen on either side. IMPRESSION: 1. Unremarkable pelvic ultrasound post hysterectomy. Reviewed, dictated and finalized at location B.
== END ==
PROVIDERS: PCP Obstetrics & Gynecology; Visit Provider Obstetrics & Gynecology
DX: R10.2 Pelvic and perineal pain (principal)
CPT/HCPCS: 76830; 76856

== ENCOUNTER 2022-04-19 11:59 | Emergency (ER) | payer OTHER, SELFPAY ==
[2022-04-19 12:07] VITALS: BP 128/73; PULSE 86; RESP 18; TEMP 36.7; O2SAT 98
--- NOTE | 2022-04-19 12:29 | ED.URI ---
HPI - URI/Sore Throat General Chief Complaint: Upper Respiratory Infection Stated Complaint: Sore Throat,Headache Source: patient Mode of arrival: ambulatory Limitations: no limitations History of Present Illness HPI Narrative: 36-year-old female presents to [facility] complaint of scratchy throat and headache since yesterday. Patient's daughter tested positive for strep throat. Patient has been taking [id number] Tylenol with minimal relief. Patient denies fever, cough, congestion, runny nose, nausea vomiting or diarrhea. Patient is nonsmoker. Patient denies recent travel. MD elicited complaint: sore throat Onset (ago): day(s) (1) Able to tolerate fluids by mouth: Yes Exacerbating factors: swallowing Context: sick contacts Treatments prior to arrival: acetaminophen and ibuprofen Related Data Allergies Allergy/AdvReac Type Severity Reaction Status Date / Time No Known Allergies Allergy Verified 04/19/22 12:16 Review of Systems Constitutional: Constitutional: Denies chills, Denies fatigue, Denies fever(s) and Denies weakness ENT: Denies dizziness, Denies epistaxis, Denies nasal congestion and Reports sore throat Cardiovascular: Cardiovascular: Denies chest pain Respiratory: Respiratory: Denies cough, Denies dyspnea and Denies wheezing Gastrointestinal: Gastrointestinal: Denies diarrhea, Denies nausea and Denies vomiting Integumentary/Breasts: Skin/Breast: Denies rash Neurologic: Denies confusion, Denies vertigo, Denies dizziness, Denies syncope and Reports headache(s) PMFSH Past Medical History Medical History Androgenic alopecia Anxiety Depression Generalized anxiety disorder Miscarriage within last 12 months SAB3 Psoriasis Telogen effluvium Surgical History Surgical History History of gynecological procedure (05/26/21) RATLH History of tubal ligation Family History Family History Mother Hypertension Family history of elevated blood lipids Grandparent Acute myocardial infarction Cerebrovascular accident Family history of malignant neoplasm Social History Social History Smoking packs per day: 0.5 Smoking cigarettes per day: 10.0 Years smoked: 7 Smoking pack-years: 3.50 Smoking status: Former smoker Alcohol intake: current Drinks per week: 2 Substance use: never Substance use type: does not use Living arrangements: other Additional living arrangements comments: 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 There is no relevant family history pertinent to the presenting complaint. Exam Const: General: healthy appearing and no acute distress Nutritional Appearance: well nourished Orientation/consciousness: patient oriented x3 Limitations: no limitations HENMT: Head: normal to inspection Ears: external ears normal, TM's normal bilaterally and EAC's normal Face/Nose/Sinus: Normal external nose present and Normal nares present Face and sinus: normal facial exam Mouth: Yes Normal oral and palatal mucosa present and Yes moist mucous membranes Teeth and gingiva: dentition normal Other: Mild erythema noted to posterior pharynx. Tonsils are within normal limits Eyes: Conjunctivae: conjunctivae normal Resp: Effort & Inspection: normal respiratory effort and not labored Auscultation: clear to auscultation bilaterally, no crackles, no rales and no rhonchi Cardio: Rate: regular rate Rhythm: regular rhythm Heart sounds:
== END 2022-04-19 12:36 | disposition home or self-care (01) ==
PROVIDERS: Emergency Provider Nurse Practitioner Family; PCP Family Medicine
DX: J02.9 Acute pharyngitis, unspecified (principal); Z87.891 Personal history of nicotine dependence; L40.9 Psoriasis, unspecified; L64.9 Androgenic alopecia, unspecified
CPT/HCPCS: 87081; 87880; 99213; G0463

== ENCOUNTER → 2022-10-20 13:52 | Outpatient (CLI) | payer OTHER, SELFPAY ==
--- NOTE | ~2022-10-20 | XR_ITS ---
XR abdomen/kub 1V 10/20/2022 14:10 INDICATION: Constipation with vomiting TECHNIQUE: KUB COMPARISON: None FINDINGS: Bowel gas pattern is normal. Moderate colonic fecal loading. There is no evidence of free a ir, mass, organomegaly, ascites or obstruction. No abnormal calculi are seen. The bones appear inta ct. IMPRESSION: 1: No acute abdominal abnormality identified. Reviewed, dictated and finalized at location A.
== END ==
PROVIDERS: PCP Family Medicine; Visit Provider Family Medicine
DX: K59.00 Constipation, unspecified (principal); R11.10 Vomiting, unspecified
CPT/HCPCS: 74018

== ENCOUNTER 2023-06-15 08:11 | Emergency (ER) | payer OTHER, SELFPAY ==
--- NOTE | 2023-06-15 08:15 | ED.URI ---
HPI - URI/Sore Throat General Chief Complaint: Upper Respiratory Infection Stated Complaint: Congestion, Sore Throat, Bodyaches Time Seen by Provider: 06/15/23 08:55 Source: patient and RN notes reviewed Mode of arrival: ambulatory Limitations: no limitations History of Present Illness HPI Narrative: 37-year-old female presents with concern for 1 day history of cough, sore throat, head congestion, body aches. Reports exposure to influenza. Reports she had influenza approximately 1 month ago. She reports body aches and chills, denies fever MD elicited complaint: cough and nasal congestion Related Data Home Medications Medication Instructions Recorded Confirmed spironolactone 100 mg tablet mg PO DAILY 02/08/23 05/20/23 bupropion HCl 300 mg 24 hr tablet, mg PO 05/20/23 05/20/23 extended release Allergies Allergy/AdvReac Type Severity Reaction Status Date / Time No Known Allergies Allergy Verified 05/20/23 09:56 Review of Systems Review of Systems: CONSTITUTIONAL: Denies malaise, chills. Denies fever. EYES: Denies visual changes, redness, or discharge. ENT: Reports rhinorrhea, congestion, sinus pain, otalgia and sore throat. CARDIOVASCULAR: Denies chest pain, palpitations, or edema. RESPIRATORY: Reports cough. Denies dyspnea. GASTROINTESTINAL: Denies abdominal pain, nausea, vomiting, diarrhea SKIN: Denies rash or itching. MUSCULOSKELETAL: Reports myalgia. NEUROLOGIC: Reports headache. All systems reviewed & are unremarkable except as noted in HPI and below PMFSH Past Medical History Medical History Androgenic alopecia Anxiety Colon polyp Depression Generalized anxiety disorder Miscarriage within last 12 months SAB3 Psoriasis Telogen effluvium Surgical History Surgical History History of gynecological procedure (05/26/21) RATLH History of tubal ligation Family History Family History Mother Hypertension Family history of elevated blood lipids Grandparent Acute myocardial infarction Cerebrovascular accident Family history of malignant neoplasm Social History Social History (Updated 05/20/23 @ 09:57 by MADELEINE Metcalf) Smoking packs per day: 0.5 Smoking cigarettes per day: 10.0 Years smoked: 7 Smoking pack-years: 3.50 Smoking status: Former smoker Second hand tobacco smoke exposure: No Smoking end date: 04/29/11 Alcohol intake: current Drinks per week: 2 Substance use: never Substance use type: does not use Do You Feel Safe in your Home?: Yes Lack of Transportation: No Lack of Food: Never True Current Housing: I Have Housing Concerned About Future Housing: No Difficulty Paying Gas/Electric Bills: No Difficulty Paying for Meds: No Currently Unemployed: No Education: Bachelor's Degree Difficulty w/ Childcare or Family Care: No Living arrangements: other Additional living arrangements comments: 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 There is no relevant family history pertinent to the presenting complaint Exam Narrative: GENERAL: Well-appearing, well-nourished, and in no acute distress. HEAD: Normocephalic EYES: PERRLA, conjunctivae clear ENT: Nares clear, turbinates edematous and erythematous, clear discharge. Mucous membranes moist. TM pearly pat with sharp light reflex bilaterally; no tragal tenderness. Oropharynx not erythematous without lesions. Tonsils not enlarged and without exudate, no drooling, no hoarseness, no trismus,
[2023-06-15 08:31] VITALS: BP 108/63; PULSE 96; RESP 16; TEMP 36.4; O2SAT 100
== END 2023-06-15 09:07 | disposition home or self-care (01) ==
PROVIDERS: Emergency Provider Nurse Practitioner; PCP Family Medicine
DX: B34.9 Viral infection, unspecified (principal); Z87.891 Personal history of nicotine dependence; F41.1 Generalized anxiety disorder; F32.A Depression, unspecified; L64.9 Androgenic alopecia, unspecified
CPT/HCPCS: 99213; G0463

== ENCOUNTER 2023-12-31 14:50 | Outpatient (CLI) | payer OTHER, SELFPAY ==
--- NOTE | ~2023-12-31 | US_ITS ---
EXAMINATION: US pelvic complete w TV DATE: 12/31/2023 15:14 INDICATION: Pelvic and perineal pain TECHNIQUE: Multiple transabdominal and endovaginal sonographic images of the pelvis were obtained. COMPARISON: 01/21/2022 FINDINGS: The uterus is again not visualized and reportedly surgically absent. The right ovary measures 3.0 x 2 .3 x 2.1 cm. After flow identified within the right ovary on color Doppler. The left ovary is not vis ualized. There is no free fluid in the pelvis. IMPRESSION: 1. Normal right ovary. Left ovary is not visualized and the uterus is reportedly surgically absent. Reviewed, dictated and finalized at location A. IMPRESSION: 1. Normal right ovary. Left ovary is not visualized and the uterus is reportedl y surgically absent.
== END 2023-12-31 14:51 | disposition home or self-care (01) ==
LOC: GOSHIMG 14:51
PROVIDERS: PCP Family Medicine; Visit Provider Student in an Organized Health Care Education/Training Program
DX: R10.2 Pelvic and perineal pain (principal); Z90.710 Acquired absence of both cervix and uterus
CPT/HCPCS: 76830; 76856

== ENCOUNTER 2024-02-09 14:15 | Outpatient (CLI) | payer OTHER, SELFPAY ==
--- NOTE | ~2024-02-09 | MM_ITS ---
EXAMINATION: MM screening shahla BI w joleen HISTORY: Screening mammogram TECHNIQUE: Craniocaudal and mediolateral oblique 3-D tomosynthesis images were obtained and synthetic 2-D images were generated. CAD analysis was submitted and interpreted. COMPARISON: No prior mammogram is available for comparison at this institution. BREAST PARENCHYMAL COMPOSITION:Not Dense. There are scattered areas of fibroglandular density. FINDINGS: No suspicious mass, calcification, or architectural distortion are identified in either ruby ast to suggest malignancy. There has been no suspicious interval change. IMPRESSION: No mammographic evidence of malignancy. Recommend routine screening mammography in one year. BI-RADS Category 1: Negative Reviewed, dictated and finalized at location . PRESIDENT OF OPERATIONS
== END 2024-02-09 14:16 | disposition home or self-care (01) ==
PROVIDERS: PCP Family Medicine; Visit Provider Nurse Practitioner Family
DX: Z12.31 Encounter for screening mammogram for malignant neoplasm of breast (principal); Z80.3 Family history of malignant neoplasm of breast
CPT/HCPCS: 77063; 77067

== ENCOUNTER 2024-05-03 12:53 | Outpatient (CLI) | payer OTHER, SELFPAY ==
--- NOTE | ~2024-05-03 | CT_ITS ---
EXAMINATION: CT abdomen pelvis w con DATE: 05/03/2024 13:13 INDICATION: Unspecified abdominal pain. TECHNIQUE: Computed tomography (CT) of the abdomen and pelvis was performed with 100 mL Omnipaque 350 intravenous contrast. Automated exposure control and iterative reconstruction technique were employe d. The dose-length product was 363.16 mGy-cm. COMPARISON: None. FINDINGS: The visualized portions of the lung bases are clear without pneumonia or pleural effusion. The heart size is normal. No pericardial effusion. There are small bilateral posterior diaphragmatic hernias containing fat. The liver, gallbladder, spleen, pancreas, adrenal glands, and kidneys are nor mal. There are no dilated loops of bowel. The appendix is normal. There are no pathologically enlarge d lymph nodes. There is no free intraperitoneal fluid. There is mild thoracic and lumbar spondylosis. IMPRESSION: 1. No etiology for the patient's symptoms. Reviewed, dictated and finalized at location A. NT LIAISON
--- OUTSIDE RECORDS SUMMARY | 2024-05-03 13:49 | XMS_ITS | Clinical Summary ---
Author Organization [facility] Address [address] [place] [address] Care Team Providers Care Welfare Officer Name Role Phone Remy Powers MD Primary Care Provider [phone] Source Comments [facility],non-owned Affiliates and Associated Physician Practices is amultiple site organization consisting of ambulatory clinics and hospital sitesin [place], [place], [place] and [place]. This disclosure is being madepursuant to the Care Everywhere program and may not contain all information available regarding this patient. Last updated 17.[facility] Allergies No known active allergies Medications * Be aware that medications may not be up to date on this document. Alwaysverify current medications with the patient. 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 Social History Tobacco Use Types Packs/Day Years Used Date Smoking Tobacco: Never Smokeless Tobacco: Never Tobacco Cessation:Counseling Given: Not Answered Alcohol Use Standard Drinks/Week Comments Yes 0 (1 standard drink = 0.6 oz pur e alcohol) socially Sex and Gender Information Value Date Recorded Sex Assigned at Not on file Gender Identity Not on file Sexual Orientation Not on file Last Filed Vital Signs Vital Sign Reading Time Taken Comments Blood Pressure 106/64 03/12/2023 8:30 AM [employer] [employer] ATTEND[employer] Pulse 90 03/12/2023 8:30 AM [employer] [employer]END[employer] Temperature 36.8 C (98.3 F) 03/12/2023 8:30 AM [employer] [employer]END[employer] Respiratory Rate - - Oxygen Saturation 99% 03/12/2023 8:30 AM [employer] [employer] ATTENDANT Inhaled Oxygen Concentration - - Weight 68.9 kg (152 lb) 03/12/2023 8:30 AM [employer] ATTEND[employer] Height 165.1 cm (5' 5 ) 03/12/2023 8:30 AM [employer] [employer] ATTEND[employer] Body Mass Index 25.29 03/12/2023 8:30 AM [employer] [employer] ATTEND[employer] Plan of Treatment Health Maintenance Due Date Last Done Comments PAP SMEAR 1985 HIV SCREENING 2000 HEPATITIS C SCREENING 10/20/2003 DTAP/TDAP/TD VACCINES (1 - Tdap) 2004 HEPATITIS B VACCINE (1 of 3 - 19+ 3-dose series) 2004 COVID-19 VACCINE ( - 2023-2 5 season) 2023 INFLUENZA VACCINE (#1) 2023 DEPRESSION SCREENING 03/29/2024 ZOSTER VACCINE (1 of 2) 10/25/2035 HIB VACCINE Aged Out No longer eligi ble based on patient's age to complete this topic HPV VACCINE Aged Out No longer eligi ble based on patient's age to complete this topic MENINGOCOCCAL (Group B) VACCINE Aged Out No longer eligible based on patient's age to complete this topic MENINGOCOCCAL VACCINE Aged Out No jhony carlos eligible based on patient's age to complete this topic PNEUMOCOCCAL VACCINE Aged Out No long er eligible based on patient's age to complete this topic Care Teams Welfare Officer Relationship Specialty Start Date End Date Remy Powers MD [facility] [place] [id number] PCP - General 09/01/18
--- OUTSIDE RECORDS SUMMARY | 2024-05-03 13:49 | XMS_ITS | Patient Health Summary ---
Author Organization [facility] Address [address] [place] [address] Care Team Providers Care Custodian Athletic Equipment Name Role Phone Remy Powers MD Primary Care Provider [phone]- [phone] Note from [facility],non-owned Affiliates and Associated Physician Practices is amultiple site organization consisting of ambulatory clinics and hospital sitesin [place], [place], [place] and [place]. This disclosure is being madepursuant to the Care Everywhere program and may not contain all information available regarding this patient. Last updated 17.[facility] Allergies No known active allergies Medications * Be aware that medications may not be up to date on this document. Alwaysverify current medications with the patient. * semaglutide (Wegovy) 1.7 MG/0.75ML pen(Started 10/15/2022) Inject 1.7 mg subcutaneously every 7 days * spironolactone (Aldactone) 100 MG tablet(Started 01/30/2023) Take 1 (one) tablet by mouth once daily * buPROPion XL 24hr (Wellbutrin-XL) 300 MG tablet(Started 12/13/2022) Take 1 (one) tablet by mouth every morning * BIOTIN PO * Multiple Vitamin (MULTIVITAMIN ADULT PO) Active Problems Problem Noted Date Diagnosed Date [...] Comments Blood Pressure 106/64 03/12/2023 8:30 AM TURN OPERATOR Pulse 90 03/12/2023 8:30 AM TURN OPERATOR Temperature 36.8 C (98.3 F) 03/12/2023 8:30 AM TURN OPERATOR Respiratory Rate - - Oxygen Saturation 99% 03/12/2023 8:30 AM TURN OPERATOR Inhaled Oxygen Concentration - - Weight 68.9 kg (152 lb) 03/12/2023 8:30 AM TURN OPERATOR Height 165.1 cm (5' 5 ) 03/12/2023 8:30 AM TURN OPERATOR Body Mass Index 25.29 03/12/2023 8:30 AM TURN OPERATOR Care Teams Custodian Athletic Equipment Relationship Specialty Start Date End Date Remy Powers MD [address] [place] [id number] PCP - General 09/01/18
--- OUTSIDE RECORDS SUMMARY | 2024-05-03 13:49 | XMS_ITS | Encounter Summary ---
Author Organization [facility] Address [address] [place] [address] Care Team Providers Care Instructor Physical Name Role Phone Remy Powers MD Primary Care Provider [phone] [phone] Encounter Details Date Type Department Care Team (Late st Contact Info) Description 11/26/2020 Telephone [facility] Radiology [address] [place] [address] Yenny Mills MD [address] [facility] [address] [place] [address] Social History Tobacco Use Types Packs/Day Years Used Date Smoking Tobacco: Former Cigarettes Smokeless Tobacco: Never Comments:smoked half ppd, qu it 2014 Alcohol Use Standard Drinks/Week Comments Yes 0 (1 standard drink = 0.6 oz pur e alcohol) occ AUDIT-C Answer Date Recorded Q1: How often do you have a drink containing alc ohol? 2-3 times a week 11/05/2020 Average Number of Drinks Not on file 021 Frequency of Binge Drinking Not on file 10/27 Comments No Sex and Gender Information Value Date Recorded Sex Assigned at Not on file Legal Sex Female 11:45 AM RESAW FEEDER Gender Identity Female 03/08/2018 9:02 AM RESAW FEEDER Sexual Orientation Not on file documented as of this encounter Plan of Treatment Not on file documented as of this encounter Visit Diagnoses Not on filedocumented in this encounter Additional Health Concerns Infection Onset Date Last Indicated Resolved Time COVID: Suspected 07/19/2021 07/19/2021 07/19/2021 6:46 PM CDT COVID19 07/19/2021 07/19/2021 07/29/2021 3:05 AM CDT documented as of this encounter Care Teams Instructor Physical Relationship Specialty Start Date End Date Remy Powers MD PCP - General 08/01/18 documented as of this encounter
--- OUTSIDE RECORDS SUMMARY | 2024-05-03 13:49 | XMS_ITS | Referral Summary ---
Author Organization [facility] Address [address] [place] [address] Care Team Providers Care Clinical Documentation Improvement Specialist Name Role Phone Remy Powers MD Primary Care Provider +1- [phone] Source Comments [facility],non-owned Affiliates and Associated Physician Practices is amultiple site organization consisting of ambulatory clinics and hospital sitesin [place], [place], [place] and [place]. This disclosure is being madepursuant to the Care Everywhere program and may not contain all information available regarding this patient. Last updated 17.[facility] Allergies No known active allergies Medications * [...] Comments Blood Pressure 106/64 03/12/2023 8:30 AM DIESEL TRAILER MECHANIC Pulse 90 03/12/2023 8:30 AM DIESEL TRAILER MECHANIC Temperature 36.8 C (98.3 F) 03/12/2023 8:30 AM DIESEL TRAILER MECHANIC Respiratory Rate - - Oxygen Saturation 99% 03/12/2023 8:30 AM DIESEL TRAILER MECHANIC Inhaled Oxygen Concentration - - Weight 68.9 kg (152 lb) 03/12/2023 8:30 AM DIESEL TRAILER MECHANIC Height 165.1 cm (5' 5 ) 03/12/2023 8:30 AM DIESEL TRAILER MECHANIC Body Mass Index 25.29 03/12/2023 8:30 AM DIESEL TRAILER MECHANIC Plan of Treatment Not on file Care Teams Clinical Documentation Improvement Specialist Relationship Specialty Start Date End Date Remy Powers MD [facility] [place] [id number] PCP - General 09/01/18
--- OUTSIDE RECORDS SUMMARY | 2024-05-03 13:50 | XMS_ITS | Clinical Summary ---
Author Organization [facility] Address [facility] [place] [address] Care Team Providers Care Take Down Inspector Name Role Phone Remy Powers MD Primary Care Provider [phone] [phone] Allergies No known active allergies Medications diazePAM (VALIUM) 5 mg tabletIndicatio ns:Sedation Take 1 tablet (5 mg total) by mouth once as needed for anxiety for up to 1 dose Take 30 minutes before MRI 1 tablet 11/06/2020 Active Active Problems Problem Noted Date Diagnosed Date Obesity affecting in second trimester 04/04/2018 Overview (04/05/2018): - previously counseled, see initial consult note - recommend limiting weight gain to 11-20 lbs in - recommend consultation with Nutrition Gestational diabetes mellitu s (GDM) in second trimester controlled on oral hypoglycemic drug 03/16/2018 Overview (08/17/2018): -Current regimen (08/17) -NPH 24 units QHS - previously counseled, see initial consult note - s/p diabetes education and nutritional counseling - continue emailing BS logs weekly for review - continue serial growth ultrasounds- AGA - continue daily kick counts and 2x/weekly testing with primary - for delivery at 39 weeks with primary Assessment & Plan (04/05/2018 3:38 PM WATER PLUMBER): Reports all fastings in the 100s. Plan made prior to seeing the patient was to increase her glyuride to 7.5mg qhs. Patient reports she occasionally wakes up feeling shaky and eats a snack. This does not happen every night and she does not check her BS in the middle of the night when this happens. Recommend she start checking her BS and let us know immediately if she is hypoglycemic so we can make medication adjustments. Patient feels comfortable increasing to 7.5mg qHS and will reach out to us if that dose is not working for her. Supervision of high risk pre gnancy, antepartum, second trimester 03/03/2018 Overview (08/17/2018): COM and delivery with Hyacinth Esquivel CNP Tdap today Prior with demise at 18 weeks Overview (07/25/2018): - h/o placental abruption on placenta path from 2nd - previously counseled, see initial consult note - on review of patients history she is not a candidate for history indicated cerclage or 17 OHP - recommend close monitoring of blood pressures and assessing for preeclampsia [x] specialized anatomy [x] ECHO Surgical History Surgery Date Site/Laterality Comments HEMORRHOID SURGERY 03/29/2013 - 03/28/2014 DILATION AND CURETTAGE OF UTERUS 08/30/2017 retained placenta Medical History Medical History Date Comments Prior with demise Hemorrhoids Gestational diabetes Kidney infection Miscarriage 08/2017 Family History Medical History Relation Name Comments Diabetes Maternal Grandfather Diabetes Maternal Grandmother Stroke Maternal Grandmother Fibrocystic breast disease Mother Hypertension Mother Relation Name Status Comments Maternal Grandfather Maternal Grandmother Mother Social History Tobacco Use Types Packs/Day Years [...] of Binge Drinking Not on file 10/27 Personal Safety Answer Date Recorded Getting School Help Needed Not on file 05/22 Comments No Sex and Gender Information Value Date Recorded Sex Assigned at Not on file Legal Sex Female 11:45 AM WATER PLUMBER Gender Identity Female 03/08/2018 9:02 AM WATER PLUMBER Sexual Orientation Not on file Obstetrics History Para Term AB IAB SAB Ectopic Multiple Livin g Live Births 3 2 1 1 1 Date Outcome GA Total Labor Labor/2nd/3rd Weight Sex Type Anes PTL Molly A1 A5 Name Clin 016 Term 38w 0d 3.345 kg (7 lb 6 oz) F Vag-S pont Epidur al N Livin g 018 Para 18w 0d Vag-S pont Demis e Complications:Premature Rupt ure of Membranes Last Filed Vital Signs Vital Sign Reading Time Taken Comments Blood Pressure 115/75 11/05/2020 12:54 PM CDT Pulse 78 11/05/2020 12:54 PM CDT Temperature 36.6 C (97.8 F) 03/08/2018 1:08 PM WATER PLUMBER Respiratory Rate - - Oxygen Saturation 98% 03/08/2018 1:08 PM WATER PLUMBER Inhaled Oxygen Concentration - - Weight 91.5 kg (201 lb 12.8 oz) 021 12:54 PM CDT Height 165.1 cm (5' 5 ) 11/05/2020 12:5 4 PM CDT Body Mass Index 33.58 11/05/2020 12:54 PM CDT Plan of Treatment Health Maintenance Due Date Last Done Comments Albumin Creatinine Ratio, Urine 1985 Cervical Cancer Screening 1985 Depression Screening 1985 Hepatitis C Screening 1985 eGFR 1985 Dilated Eye Exam 1985 Foot Exam 1985 Lipid Panel 1985 Pneumococcal vaccine <65 (1 of 2 - PCV) 10/25/1991 Varicella Vaccines (1 of 2 - 13+ 2-dose series) 1998 Hepatitis B Screening 10/25/2003 Regular Well Visit/Exam 18-64 10/25/2003 Hemoglobin A1C 08/04/2018 02/04/2018 Influenza Vaccine (#1) 2023 0, 01/31/2018, 12/16/2016 DTaP/Tdap/Td Vaccine (2 - Td or Tdap) 01/29/2026 01/30/2016 HPV Vaccines Aged Out No longer eligi ble based on patient's age to complete this topic Procedures Procedure Name Priority Date/Time Associated Diagnosis Comments HEMOGLOBIN A1C Routine 02/04/2018 from Last 3 Months or Most Recently Relevant to Health Maintenance Results * Hemoglobin A1c (02/04/2018) Hgb A1C 5.1 % Blood specimen (specimen) Hyacinth Esquivel NP LAB BLOOD ORDERABLES Final Resul t from Last 3 Months or Most Recently Relevant to Health Maintenance Insurance CHOICE PLUS CHOICE PLUS Care Teams Take Down Inspector Relationship Specialty Start Date End Date Remy Powers MD PCP - General 08/01/18
--- OUTSIDE RECORDS SUMMARY | 2024-05-03 13:50 | XMS_ITS | Referral Summary ---
Author Organization [facility] Address [facility] [place] [address] Care Team Providers Care Terminal Makeup Operator Name Role Phone Remy Powers MD Primary Care Provider [phone] -[phone] Allergies No known active allergies Medications diazePAM [...] primary Assessment & Plan (04/05/2018 3:38 PM PADDER CUSHION): Reports all fastings in the 100s. Plan [...] for preeclampsia [x] specialized anatomy [x] ECHO Social History Tobacco Use Types Packs/Day Years Used Date Smoking Tobacco: Former Cigarettes Smokeless Tobacco: Never Comments:smoked half ppd, qu it 2015 Alcohol Use Standard Drinks/Week Comments Yes 0 [...] on file Legal Sex Female 11:45 AM PADDER CUSHION Gender Identity Female 03/08/2018 9:02 AM PADDER CUSHION Sexual Orientation Not on file Last Filed Vital Signs Vital Sign Reading Time Taken Comments Blood Pressure 115/75 11/05/2020 12:54 PM CDT Pulse 78 11/05/2020 12:54 PM CDT Temperature 36.6 C (97.8 F) 03/08/2018 1:08 PM PADDER CUSHION Respiratory Rate - - Oxygen Saturation 98% 03/08/2018 1:08 PM PADDER CUSHION Inhaled Oxygen Concentration - - Weight 91.5 kg (201 lb 12.8 oz) 08/10/2 021 12:54 PM CDT Height 165.1 cm (5' 5 ) 11/05/2020 12:5 4 PM CDT Body Mass Index 33.58 11/05/2020 12:54 PM CDT Plan of Treatment Not on file Procedures Procedure Name Priority Date/Time Associated Diagnosis Comments HEMOGLOBIN A1C Routine 02/04/2018 from Last 3 Months or Most Recently Relevant to Health Maintenance Results * Hemoglobin A1c (02/04/2018) Hgb A1C 5.1 % Blood specimen (specimen) Hyacinth Eqsuivel NP LAB BLOOD ORDERABLES Final Resul t from Last 3 Months or Most Recently Relevant to Health Maintenance [place] [address] [facility] CHOICE PLUS Care Teams Terminal Makeup Operator Relationship Specialty Start Date End Date Remy Powers MD PCP - General 08/01/18
--- OUTSIDE RECORDS SUMMARY | 2024-05-03 13:50 | XMS_ITS | Clinical Summary ---
Author Organization [facility] Address [address] [place] [address] Care Team Providers Care Rubber Ball Finisher Name Role Phone Remy Powers MD Primary Care Provider +1- [phone] Allergies No known active allergies Medications buPROPion XL (WELLBUTRIN XL) 150 MG 24 hr tablet Take 1 tablet (150 mg total) by mouth every morning. 06/23/19 Active buPROPion XL (WELLBUTRIN XL) 300 MG 24 hr tablet Take 1 tablet (300 mg total) by mouth every morning. 05/25/19 23 Active WEGOVY 1.7 mg/dose injection (PEN) Inject 1.7 mg into the skin once a week. 10/16/19 Active ondansetron (ZOFRAN-ODT) 4 MG disintegrating tablet Take 1 tablet (4 mg total) by mouth every 8 (eight) hours as needed for Nausea. 20 tablet 10/22/19 Active Additional Information Patient not taking.Reported on 02/08/2023 clobetasol (TEMOVATE) 0.05 % external solution APPLY TOPICALLY TO THE AFFECTED AREA TWICE DAILY NEEDED FOR ITCHING OR FLAKING. DO NOT USE ON THE FACE OR BODY 11/07/19 Active ketoconazole (NIZORAL) 2 % shampoo SHAMPOO 2 TIMES A WEEK. LEAVE ON FOR 5 MINUTES BEFORE RINSING 11/07/19 Active spironolactone (ALDACTONE) 100 MG tablet Take 1 tablet (100 mg total) by mouth daily. 11/07/19 Active Active Problems Problem Noted Date Diagnosed Date Intestinal obstruction, unsp ecified cause, unspecified whether partial or complete ([facility]) 10/27/2022 Overview (10/27/2022): Added automatically from request for surgery [id number] Constipation, unspecified constipation type 03/2022 Overview (10/27/2022): Added automatically from request for surgery [id number] Duodenitis 10/27/2022 Overview (10/27/2022): Added automatically from request for surgery [id number] Weight loss 10/27/2022 Overview (10/27/2022): Added automatically from request for surgery [id number] Chronic GERD 10/27/2022 Overview (10/27/2022): Added automatically from request for surgery [id number] Social History Tobacco Use Types Packs/Day Years Used Date Smoking Tobacco: Never Smokeless Tobacco: Never Alcohol Use Standard Drinks/Week Comments Yes 1 (1 standard drink = 0.6 oz pur e alcohol) Comments No Sex and Gender Information Value Date Recorded Sex Assigned at Not on file Legal Sex Female 3:12 PM CDT Gender Identity Not on file Sexual Orientation Not on file Last Filed Vital Signs Vital Sign Reading Time Taken Comments Blood Pressure 109/62 02/11/2023 5:16 PM SWEAT BAND SEPARATOR Pulse 95 02/11/2023 5:16 PM SWEAT BAND SEPARATOR Temperature 36.2 C (97.1 F) 02/11/2023 5:04 PM SWEAT BAND SEPARATOR Respiratory Rate 20 02/11/2023 5:16 PM SWEAT BAND SEPARATOR Oxygen Saturation 100% 02/11/2023 5:16 PM SWEAT BAND SEPARATOR Inhaled Oxygen Concentration - - Weight 66.7 kg (147 lb) 02/08/2023 12:08 PM SWEAT BAND SEPARATOR Height 165.1 cm (5' 5 ) 02/08/2023 12:07 PM SWEAT BAND SEPARATOR Body Mass Index 24.46 02/08/2023 12:07 PM SWEAT BAND SEPARATOR Plan of Treatment Health Maintenance Due Date Last Done Comments Annual Physical 1988 PHQ-2 (Physician [place]) 1997 Hepatitis C 10/25/2003 Hepatitis B Vaccines (1 of 3 - 19+ 3-dose series) 2004 COVID-19 Vaccine ( season) 2023 04/11/2021, 05/10/2020, 04/19/2020 Influenza Adult (#1) 2023 01/27/2022, 01/10/2021, 02/05/2020, Additional history exists PHQ-2 (Physician [place]) 03/29/2024 DTaP, Tdap and Td Vaccines (2 - Td or Tdap) 01/29/2026 01/30/2016 HPV Vaccines Aged Out No longer eligi ble based on patient's age to complete this topic Meningococcal B Vaccine Aged Out No l onger eligible based on patient's age to complete this topic Meningococcal Vaccine Aged Out No jhony carlos eligible based on patient's age to complete this topic Pneumococcal Vaccine: Pediatrics (0 to 5 Years) and At-Risk Patients (6 to 64 Years) Aged Out No longer eligible based on patient's age to complete this topic RSV Immunizations Under 20 Months Aged Out No longer eligible based on patient's age to complete this topic Insurance Care Teams Rubber Ball Finisher Relationship Specialty Start Date End Date Remy Powers MD [address] [place] [address] [address] PCP - General FAMILY PRACTICE 10/21/22
[2024-05-03 14:22] LABS: Basophils Percent Auto 0.7 % (0.2-1.2); Eosinophils Absolute Auto 0.2 K/mm3 (0-0.3); Eosinophils Percent Auto 2.5 % (0-4.4); Hematocrit 41.5 % (37.0-47.0); Hemoglobin 13.7 g/dL (12.0-15.0); Immature Granulocyte Absolute 0.02 K/mm3 (0.00-0.031); Immature Granulocyte Percent A 0.3 % (0-0.5); Lymphocytes Absolute Auto 2.34 K/mm3 (0.9-3.2); Lymphocytes Percent Auto 38.6 % (18.3-44.2); Mean Corpuscular Hemoglobin 30.3 pg (26-34); Mean Corpuscular Volume 91.8 fl (80-100); Mean Platelet Volume 10.2 fl (7.4-10.4); Monocytes Absolute Auto 0.5 K/mm3 (0.1-0.6); Monocytes Percent Auto 8.3 % (2.6-8.5); Neutrophils Percent Auto 49.6 % (45.5-73.1); Platelet Count Result 248 k/mm3 (150-375); Red Blood Count 4.52 M/mm3 (4.2-5.4); Red Cell Distribution Width 11.8 % (11.5-14.5); White Blood Count 6.1 K/mm3 (4.5-10.0)
[2024-05-03 14:26] LABS: Alanine Aminotransferase 18 U/L (6-35); Albumin Level 4.2 g/dL (3.5-5.1); Alkaline Phosphatase 59 U/L (38-126); Amylase 53 U/L (30-110); Anion Gap 13 mmol/L (4-12); Aspartate Amino Transferase 23 U/L (14-36); Bilirubin,Total 0.7 mg/dL (0.2-1.3); Blood Urea Nitrogen 13 mg/dL (7-17); Calcium 9.2 mg/dL (8.4-10.2); Carbon Dioxide 23 mmol/L (22-30); Chloride 101 mmol/L (98-107); Estimated Glomerular Filt Rate > 60; Glucose 75 mg/dL (65-110); Lipase 92 U/L (23-300); Potassium 3.8 mmol/L (3.4-5.0); Sodium 137 mmol/L (137-145)
[2024-05-03 16:44] LABS: Thyroid Stimulating Hormone Reflex 0.747 uIU/mL (0.465-4.68)
[2024-05-03 18:06] LABS: Hemoglobin A1C 4.9 % (<5.7)
== END 2024-05-03 12:54 | disposition home or self-care (01) ==
LOC: ANHIMG 12:54
PROVIDERS: PCP Family Medicine; Visit Provider Nurse Practitioner Family
DX: R53.83 Other fatigue (principal); R10.9 Unspecified abdominal pain
CPT/HCPCS: 36415; 74177; 80053; 82150; 83036; 83690; 84443; 85025; Q9967

== ENCOUNTER 2025-01-17 11:44 | Outpatient (CLI) | payer OTHER, SELFPAY ==
[2025-01-17 15:40] LABS: Add Urine Microscopic? YES; Appearance Urine Cloudy (Clear); Glucose Urine UA Negative (Negative); Leukocyte Esterase Ur 1+ LEU/UL (Negative); Need Manual Microscopic Reviewed; Nitrate Urine Positive (Negative); Specific Grav Ur 1.024 (1.001-1.035)
== END 2025-01-17 11:45 | disposition home or self-care (01) ==
LOC: ANHGOSHLAB 11:45
PROVIDERS: PCP Family Medicine; Visit Provider Nurse Practitioner Family
DX: R30.0 Dysuria (principal)
CPT/HCPCS: 81001; 87077; 87086; 87186